=== PATIENT | male | born 1990 | race Caucasian/White ===

== ENCOUNTER 2022-04-12 18:24 | Emergency (ER) | payer SELFPAY ==
[2022-04-12] MEDS ORDERED: Sodium Chloride 0.9% 10 ML Syringe FLUSH PRN (19:25)
[2022-04-12] MEDS ORDERED: Ondansetron 4 MG/2 ML SDV IVPUSH ONE (19:25)
[2022-04-12] MEDS ORDERED: Sodium Chloride 0.9% 1,000 ML IV SCH (19:30)
== END 2022-04-12 21:20 | disposition home or self-care (01) ==
LOC: JD.ED 18:24
DX: H65.02 Acute serous otitis media, left ear (principal); R07.89 Other chest pain; R42 Dizziness and giddiness; Z72.0 Tobacco use; Z88.5 Allergy status to narcotic agent; Z86.16 Personal history of COVID-19
CPT/HCPCS: 36415; 71045; 80053; 84484; 85025; 93005; 96361; 96374; 99285; A9270; J2405; J3490; J7030; 93010; 99284